=== PATIENT | female | born 1945 | race Caucasian/White ===

== ENCOUNTER → 2023-04-21 10:53 | Outpatient (REF) | payer MEDICARE, OTHER, SELFPAY | LOC: HWRAD 10:53 | PROVIDERS: ATTENDING PHYSICIAN Registered Nurse | DX: M54.42 Lumbago with sciatica, left side (principal) | CPT/HCPCS: 72110 ==

== ENCOUNTER → 2023-04-27 07:05 | Outpatient (REF) | payer MEDICARE, OTHER, SELFPAY ==
[2023-04-27 10:02] LABS: % Basophils 0.5 % (0-2); % Eosinophils 1.1 % (0-6); % Immature Granulocytes 0.6 % (0-0.5); % Lymphocytes 28.7 % (20.5-51.1); % Monocytes 5.5 % (1.7-9.3); % Neutrophils 63.6 % (42.2-75.2); Absolute Eosinophils 0.1 10^3/uL (0-0.7); Absolute Immature Granulocytes 0.1 10^3/uL (0-0.05); Absolute Lymphocytes 2.3 10^3/uL (1.2-3.4); Absolute Monocytes 0.4 10^3/uL (0.1-0.6); Absolute Neutrophils 5.1 10^3/uL (1.4-6.5); Hematocrit 45.2 % (37.0-47.0); Hemoglobin 14.5 g/dL (12.0-16.0); Mean Corp Hgb Conc. 32.1 g/dL (33.0-37.0); Mean Corpuscular Hgb 25.5 pg (27.0-31.0); Mean Corpuscular Volume 79.4 fL (81.0-99.0); Mean Platelet Volume 9.7 fL (7.4-10.4); Nucleated Red Blood Cells % 0 %; Platelet Count 209 10^3/uL (130-400); Red Blood Cell Count 5.69 10^6/uL (4.20-5.40); Red Cell Dist. Width 14.5 % (11.5-14.5)
[2023-04-27 10:07] LABS: Urine Albumin Negative (Neg - Trace); Urine Bilirubin Negative (Negative); Urine Character Clear (Clear); Urine Color Yellow; Urine Glucose Negative (Negative); Urine Ketone Negative (Negative); Urine Leukocyte Trace (Negative); Urine Nitrite Negative (Negative); Urine Occult Blood Negative (Negative); Urine Urobilinogen Negative (Neg - 1+); Urine pH 6.5 (5.0-9.0)
[2023-04-27 10:17] LABS: ALT (SGPT) 14 U/L (0-35); AST (SGOT) 18 U/L (14-36); Albumin 4.5 g/dl (3.5-5.0); Alkaline Phosphatase 63 U/L (38-126); Blood Urea Nitrogen 27 mg/dl (7-17); Calcium 9.6 mg/dl (8.4-10.2); Carbon Dioxide 30 mmol/L (22-30); Chloride 100 mmol/L (98-107); Glucose 85 mg/dl (70-99); Potassium 3.3 mmol/L (3.5-5.1); Sodium 139 mmol/L (135-145); Total Bilirubin 0.5 mg/dl (0.2-1.3); Total Protein 6.6 g/dl (6.3-8.2); eGFR > 60.00
[2023-04-27 10:24] LABS: Complement C3 87 mg/dl (88-165)
[2023-04-27 10:32] LABS: C-Reactive Protein < 5.00 mg/L (0.0-10.00)
[2023-04-27 10:46] LABS: Vitamin D, 25-OH*** 32.6 ng/mL (30-80)
[2023-04-27 11:56] LABS: Urine Amorphous Seen; Urine Hyaline Cast 0-2 /LPF (0-2); Urine Mucus Few; Urine Urothelial Cell 16-20 /LPF (FEW)
[2023-04-27 11:57] LABS: Urine Red Blood Cell 0-2 /HPF (0-2)
[2023-04-27 11:58] LABS: Urine Bacteria Few (Negative)
[2023-04-29 14:16] LABS: ds-DNA Ab, IgG Reflex To Titer 7 IU (0-24)
== END ==
LOC: HWLAB 07:05
PROVIDERS: ATTENDING PHYSICIAN Internal Medicine Rheumatology; FAMILY PHYSICIAN Registered Nurse
DX: E55.9 Vitamin D deficiency, unspecified (principal); G62.9 Polyneuropathy, unspecified; I73.00 Raynaud's syndrome without gangrene; I87.8 Other specified disorders of veins; M35.01 Sjogren syndrome with keratoconjunctivitis; R71.8 Other abnormality of red blood cells; R82.90 Unspecified abnormal findings in urine; Z68.27 Body mass index [BMI] 27.0-27.9, adult; Z79.899 Other long term (current) drug therapy
CPT/HCPCS: 36415; 80053; 81003; 81015; 82306; 85025; 86140; 86160; 86225

== ENCOUNTER → 2023-05-15 08:46 | Outpatient (REF) | payer MEDICARE, OTHER, SELFPAY ==
[2023-05-15 12:18] LABS: Blood Urea Nitrogen 24 mg/dl (7-17); Calcium 9.5 mg/dl (8.4-10.2); Carbon Dioxide 25 mmol/L (22-30); Chloride 103 mmol/L (98-107); Glucose 93 mg/dl (70-99); Sodium 139 mmol/L (135-145); eGFR > 60.00
== END ==
LOC: HWLAB 08:46
PROVIDERS: ATTENDING PHYSICIAN Registered Nurse
DX: E87.6 Hypokalemia (principal)
CPT/HCPCS: 36415; 80048

== ENCOUNTER → 2023-08-17 09:15 | Outpatient (REF) | payer MEDICARE, OTHER, SELFPAY ==
[2023-08-17 12:27] LABS: % Basophils 0.8 % (0-2); % Eosinophils 7.4 % (0-6); % Immature Granulocytes 0.2 % (0-0.5); % Monocytes 5.5 % (1.7-9.3); % Neutrophils 57.1 % (42.2-75.2); Absolute Eosinophils 0.4 10^3/uL (0-0.7); Absolute Lymphocytes 1.4 10^3/uL (1.2-3.4); Absolute Monocytes 0.3 10^3/uL (0.1-0.6); Absolute Neutrophils 2.8 10^3/uL (1.4-6.5); Hematocrit 45.9 % (37.0-47.0); Hemoglobin 14.7 g/dL (12.0-16.0); Mean Corpuscular Hgb 25.8 pg (27.0-31.0); Mean Corpuscular Volume 80.5 fL (81.0-99.0); Mean Platelet Volume 9.5 fL (7.4-10.4); Nucleated Red Blood Cells % 0 %; Platelet Count 189 10^3/uL (130-400); Red Cell Dist. Width 14.5 % (11.5-14.5); White Blood Cell Count 4.9 10^3/uL (4.8-10.8)
[2023-08-17 12:34] LABS: ALT (SGPT) 13 U/L (0-35); AST (SGOT) 22 U/L (14-36); Albumin 4.5 g/dl (3.5-5.0); Alkaline Phosphatase 65 U/L (38-126); Blood Urea Nitrogen 20 mg/dl (7-17); Calcium 9.6 mg/dl (8.4-10.2); Carbon Dioxide 28 mmol/L (22-30); Chloride 106 mmol/L (98-107); Glucose 92 mg/dl (70-99); Sodium 143 mmol/L (135-145); Total Bilirubin 0.5 mg/dl (0.2-1.3); Total Protein 6.7 g/dl (6.3-8.2); eGFR > 60.00
[2023-08-17 12:44] LABS: Total Iron Binding Capacity 274 ug/dl (265-497)
[2023-08-17 13:07] LABS: Ferritin 93.4 ng/ml (11.1-264.0)
[2023-08-17 13:33] LABS: Iron 92 ug/dl (37-170); Percent Saturation 33 % (20-50)
[2023-08-17 13:39] LABS: Folate 12.4 ng/ml (2.76-20); Vitamin B12 394 pg/ml (239-931)
[2023-08-18 14:09] LABS: Beta-2-Microglobulin 2.6 mg/L (<=3.0)
[2023-08-19 19:50] LABS: Alpha 1 Globulin 0.27 g/dL (0.19-0.46); Free Kappa Light Chains,Quant 10.49 mg/L (3.30-19.40); Free Lambda Light Chains,Quant 7.61 mg/L (5.71-26.30); IgA 46 mg/dL (68-408); IgG 475 mg/dL (768-1632); IgM 111 mg/dL (35-263); Immunofixation Electrophoresis IFE Done; Kappa/Lambda Fr Light Ratio 1.38 (0.26-1.65); Total Protein-Electrophoresis 6.5 g/dL (6.3-8.2)
== END ==
LOC: HWLAB 09:15
PROVIDERS: ATTENDING PHYSICIAN Internal Medicine Hematology & Oncology; FAMILY PHYSICIAN Registered Nurse
DX: C88.0 Waldenstrom macroglobulinemia (principal); D50.8 Other iron deficiency anemias; E53.8 Deficiency of other specified B group vitamins
CPT/HCPCS: 36415; 80053; 82232; 82607; 82728; 82746; 82784; 83521; 83540; 83550; 84155; 84165; 85025; 86334

== ENCOUNTER → 2023-11-26 13:35 | Outpatient (REF) | payer MEDICARE, OTHER, SELFPAY | LOC: HWWDC 13:35 | PROVIDERS: ATTENDING PHYSICIAN Family Medicine | DX: Z12.31 Encounter for screening mammogram for malignant neoplasm of breast (principal) | CPT/HCPCS: 77063; 77067 ==

== ENCOUNTER → 2024-11-02 09:15 | Outpatient (REF) | payer MEDICARE, OTHER, SELFPAY ==
[2024-11-02 13:07] LABS: ALT (SGPT) 14 U/L (0-35); AST (SGOT) 20 U/L (14-36); Albumin 4.4 g/dl (3.5-5.0); Alkaline Phosphatase 62 U/L (38-126); Blood Urea Nitrogen 23 mg/dl (7-17); Calcium 9.4 mg/dl (8.4-10.2); Carbon Dioxide 28 mmol/L (22-30); Chloride 106 mmol/L (98-107); Glucose 95 mg/dl (70-99); HDL Cholesterol 71 mg/dl; LDL Cholesterol, Calculated 71 mg/dl; Potassium 3.8 mmol/L (3.5-5.1); Sodium 140 mmol/L (135-145); Total Protein 6.6 g/dl (6.3-8.2); Very Low Density Lipoprotein 19 mg/dl (0-30); eGFR > 60.00
[2024-11-02 13:55] LABS: Vitamin B12 293 pg/ml (239-931)
== END ==
LOC: HWLAB 09:15
PROVIDERS: ATTENDING PHYSICIAN Family Medicine
DX: E78.5 Hyperlipidemia, unspecified (principal); E53.8 Deficiency of other specified B group vitamins
CPT/HCPCS: 36415; 80053; 80061; 82607

== ENCOUNTER → 2025-01-03 11:00 | Outpatient (REF) | payer MEDICARE, OTHER, SELFPAY | LOC: HWRCS 11:00 | PROVIDERS: ATTENDING PHYSICIAN Internal Medicine; FAMILY PHYSICIAN Family Medicine | DX: I36.1 Nonrheumatic tricuspid (valve) insufficiency (principal); I10 Essential (primary) hypertension; I27.20 Pulmonary hypertension, unspecified | CPT/HCPCS: 93306 ==

== ENCOUNTER → 2025-01-03 11:42 | Outpatient (REF) | payer MEDICARE, OTHER, SELFPAY | LOC: HWWDC 11:42 | PROVIDERS: ATTENDING PHYSICIAN Family Medicine | DX: Z12.31 Encounter for screening mammogram for malignant neoplasm of breast (principal) | CPT/HCPCS: 77063; 77067 ==

== ENCOUNTER → 2025-01-25 13:13 | Outpatient (REF) | payer MEDICARE, OTHER, SELFPAY | LOC: HWRAD 13:13 | PROVIDERS: ATTENDING PHYSICIAN Family Medicine | DX: Z78.0 Asymptomatic menopausal state (principal) | CPT/HCPCS: 77080 ==